=== PATIENT | male | born 1930 | race Caucasian/White ===

== ENCOUNTER → 2016-12-01 | Outpatient (CLI) | payer MEDICARE, BC ==
[~2016-12-01] MED LIST: ACCUPRIL PO; ACETAMINOP160 MG/12 GT; ACETAMINOPHEN PO; ACTOS PO; ALLEGRA PO; ALOE VESTA56 G1 TP; ANTARA PO; ARICEPT GT; ARICEPT PO; ARICEPT5 M1 PO; ASPIRIN PO; ASPIRIN81 M2 GT; ASPIRIN81 M2 PO; ATIVAN PO; B-121000 MC1 PO; BACTRIM DS TABL1 TA1 PO; BENICAR PO; BENICAR20 MG DOB; BENICAR20 MG PO; BETAPACE PO; BETAPACE80 MG; BETAPACE80 MG GT; BETAPACE80 MG PO; CLARITIN10 MG PO; CLEOCIN PO; COUMADIN GT; COUMADIN PO; COUMADIN2.5 MG GT; COUMADIN4 MG; COUMADIN4 MG PO; COUMADIN5 MG PO; DELTASONE20 MG PO; DEMADEX10 MG PO; DONEPEZIL HCL10 MG PO; ECOTRIN81 M1 PO; FENOFIBRATE160 MG PO; FISH OIL 1,0001 CA2 PO; FISH OIL 1,0001 CAP; FISH OIL 1,0001 CAP GT; FISH OIL 1,0001 CAP PO; FISH OIL 1,001000 M1 PO; FISH OIL300 MG PO; GLUCOPHAGE500 M1 PO; GLUCOVANCE 5/501 TA1 PO; GLUCOVANCE 5/501 TA3 PO; GLYBURIDE PO; KEFLEX500 M1 PO; KEPPRA100 MG/ML GT; KEPPRA500 M1 PO; KEPPRA500 MG/51; KEPPRA750 MG PO; LANOXIN PO; LANTUS100 U/ML; LANTUS100 U/ML SUBQ; LEVAQUIN PO; LEVEMIR FL100 UNIT/1 SUBQ; LEVEMIR100 UNITS/ SUBQ; LISINOPRIL20 MG PO; LOVENOX40 MG/0.4 INJ; LOW DOSE ASPIRI81 M1; MAG-OX 400400 MG DOB; MAGNESIUM400 MG PO; MEMANTINE PO; MICRONASE5 M2; MICRONASE5 M2 GT; MICRONASE5 M2 PO; MUCINEX DM1 TAB.SR . PO; MULTI VITAMIN1 EACH; MULTI VITAMIN1 EACH PO; MULTI-VITAMIN1 EAC1 PO; MULTIPLE VITAMI1 T11 GT; MULTIVITAM1 TAB.CH11 PO; MULTIVITAMIN; MULTIVITAMIN W-1 TAB PO; NABUMETONE PO; NAMENDA10 MG; NAMENDA10 MG GT; NAMENDA10 MG PO; NIACIN500 M2; NOVOLOG100 U/M2 SUBQ; NOVOLOG100 U/ML; NYSTATIN5 ML PO; OCUTABS TABLET1 TAB PO; OCUVITE LUTEIN1 CA1; OCUVITE LUTEIN1 CA1 GT; OCUVITE LUTEIN1 CA1 PO; OCUVITE TABLET1 TA1 DOB; OCUVITE TABLET1 TA1 PO; OCUVITE TABLET1 TAB PO; OMNICEF PO; PREDNISONE10 MG PO; PROTONIX PO; RISPERDAL0.5 MG DOB; RISPERDAL0.5 MG PO; ROBINUL1 MG; ROBINUL1 MG GT; SIMVASTATIN20 MG PO; SIMVASTATIN40 MG; SIMVASTATIN40 MG PO; SOTALOL AF80 M1 PO; TORSEMIDE10 M1 PO; TRADJENTA5 MG PO; VIMPAT100 MG PO; WALGREENS PHARMACY; WARFARIN SODIUM4 M1 PO; ZOCOR PO; ZOCOR20 MG GT; ZOCOR20 MG PO
--- NOTE | ~2016-12-01 | CR63 ---
[facility] A Service of [facility] RADIOLOGY TEXT RESULTS PATIENT: SONA COBURN LOCATION: [facility] : 30 UNIT #: [id number] AGE: [address]: AZIZA HI APRN SEX: M ORDER DR: [id number] [facility] [address] [place], [place] [address] [id number] O MR#: [id number] Acc #: [id number] NAME: SONA COBURN : 1930 SEX: M STUDY DATE/TIME: 12/01/2016 10:04 UNIT: [facility] ROOM: STUDY DESCRIPTION: CR Chest 2 View Attending Physician: Aziza Hi Referring Physician: Aziza Hi Ordering Physician: Staff Doctor Not On Primary Care Physician: Luisa Ramsay M.D. MEDICAL IMAGING REPORT This report is preliminary unless electronic signature is present EXAM 2-view chest INDICATIONS Cough, congestion and shortness of air for 2 weeks. FINDINGS PA and lateral views of the chest compared to 12/22/2015. Heart and mediastinal contours are unchanged. The lungs are hyperinflated. There is background COPD. Chronic interstitial opacities are similar to the prior study. No pleural effusion. IMPRESSION 1. No acute cardiopulmonary findings. 2. COPD and chronic interstitial changes. Dictated by... Mj Zamarripa M.D. THIS IS AN ELECTRONICALLY VERIFIED REPORT Mj Zamarripa M.D. at 12/02/2016 10:42 AM RPJovita/suhas TD: 12/02/2016 01:18 JOB #: [id number] MEDICAL IMAGING REPORT Page 1 of 1 COPY
== END | disposition home or self-care (01) ==
LOC: CRAD 09:47
DX: J40 Bronchitis, not specified as acute or chronic (principal); J44.9 Chronic obstructive pulmonary disease, unspecified
CPT/HCPCS: 71020

== ENCOUNTER → 2017-04-16 | Outpatient (CLI) | payer MEDICARE, BC ==
--- NOTE | ~2017-04-16 | CR63 ---
[facility] A Service of [facility] RADIOLOGY TEXT RESULTS PATIENT: SONA COBURN SR LOCATION: [facility] : 30 UNIT #: [id number] AGE: [address]: Luisa Ramsay MD SEX: M ORDER DR: [id number] [facility] [address]. [place], [place] [address] [id number] O MR#: [id number] Acc #: [id number] NAME: SONA COBURN SR : 1930 SEX: M STUDY DATE/TIME: 04/16/2017 16:56 UNIT: [facility] ROOM: STUDY DESCRIPTION: CR Chest 2 View Attending Physician: Luisa Ramsay M.D. Referring Physician: Luisa Ramsay M.D. Ordering Physician: Luisa Ramsay M.D. Primary Care Physician: Luisa Ramsay M.D. MEDICAL IMAGING REPORT This report is preliminary unless electronic signature is present EXAM Two-view chest. INDICATIONS Cough and congestion. 2-day duration. FINDINGS PA and lateral views of the chest compared to 12/01/2016. Heart and mediastinal contours are unchanged. There is background emphysema. There is chronic interstitial opacities with a lower lobe predominance. These are unchanged. No new pulmonary opacities. No pleural effusion. IMPRESSION 1. No acute findings. 2. COPD with chronic interstitial changes. Dictated by... Mj Zamarripa M.D. THIS IS AN ELECTRONICALLY VERIFIED REPORT Mj Zamarripa M.D. at 04/17/2017 2:53 PM RPC/jovanna TD: 04/17/2017 08:50 JOB #: [id number] MEDICAL IMAGING REPORT Page 1 of 1 COPY
== END | disposition home or self-care (01) ==
LOC: CRAD 16:28
DX: R09.89 Other specified symptoms and signs involving the circulatory and respiratory systems (principal); J44.9 Chronic obstructive pulmonary disease, unspecified; R91.8 Other nonspecific abnormal finding of lung field
CPT/HCPCS: 71020